=== PATIENT | female | born 1950 | race Caucasian/White ===

== ENCOUNTER 2017-11-23 10:24 | Observation (INO) | payer MEDICARE, OTHER, BC ==
[2017-11-23 11:40] LABS: ADD MAN DIFF? NO
[2017-11-23 11:43] LABS: BASOPHILS % 0.6 % (0.0-2.0); EOSINOPHILS # 0.1 10^3/ul (0.0-0.5); EOSINOPHILS % 1.5 % (0.0-7.0); HEMOGLOBIN 11.9 g/dl (12.0-16.0); LYMPHOCYTES # 1.3 10^3/ul (0.8-2.9); LYMPHOCYTES % 28.4 % (15.0-51.0); MEAN CORPUSCULAR HGB CONC 33.1 g/dl (32.0-37.0); MEAN CORPUSCULAR VOLUME 90.7 fl (82.0-101.0); MEAN PLATELET VOLUME 9.3 fl (7.4-10.4); MONOCYTE # 0.3 10^3/ul (0.3-0.9); MONOCYTES % 7.2 % (0.0-11.0); NEUTROPHIL # 2.9 10^3/ul (1.6-7.5); NEUTROPHILS % 61.9 % (39.0-77.0); PLATELET COUNT 206 10^3/UL (140-415); RED BLOOD COUNT 3.97 10^6/ul (4.20-5.40); RED CELL DISTRIBUTION WIDTH 13.2 % (11.5-14.5)
[2017-11-23 11:43] LABS: WHITE BLOOD COUNT 4.7 10^3/ul (4.8-10.8)
[2017-11-23 12:30] LABS: ANION GAP 8 (8-16); BLOOD UREA NITROGEN 18 mg/dl (7-20); CARBON DIOXIDE 31 mmol/L (21-31); CHLORIDE 105 mmol/L (97-110); CREATININE 0.54 mg/dl (0.44-1.00); GLUCOSE 100 mg/dl (70-220); POTASSIUM 3.9 mmol/L (3.5-5.1); SODIUM 140 mmol/L (135-144)
[2017-11-23 12:36] LABS: B-TYPE NATRIURETIC PEPTIDE 297 PG/ML (0-125); TROPONIN-I < 0.012 ng/ml (0.000-0.120)
[2017-11-23 12:46] LABS: INR 0.91; PARTIAL THROMBOPLASTIN TIME 26.6 Sec (23.0-35.0); PROTIME 12.4 Sec (11.9-14.9)
[2017-11-23] MEDS ORDERED: ONDANSETRON 4 MG INJ IV (13:00)
[2017-11-23] MEDS ORDERED: ACETAMINOPHEN 325 MG TAB PO (13:00)
[2017-11-23] MEDS ORDERED: MECLIZINE 25 MG TAB PO (16:00)
[2017-11-23] MEDS ORDERED: IBUPROFEN 600 MG TAB PO (16:00)
[2017-11-23] MEDS ORDERED: NACL 0.9% 3 ML SYG IV (16:00)
[2017-11-23] MEDS ORDERED: ONDANSETRON 4 MG TAB PO (16:00)
[2017-11-23] MEDS: ATORVASTATIN 10 MG TAB PO (20:05)
[2017-11-23] MEDS ORDERED: IOHEXOL 300MG/ML 150 ML BTL (21:48)
[2017-11-23] MEDS ORDERED: SOD CHLORIDE 0.9% 100 ML (21:48)
[2017-11-24] MEDS: PANTOPRAZOLE (EC) 40 MG TAB PO (06:32)
[2017-11-24] MEDS: CHOLECALCIFEROL 1,000 UNIT TAB PO (08:57)
[2017-11-24 09:07] LABS: HEMOGLOBIN A1C 5.8 % (0-5.9)
[2017-11-24] MEDS: LIDOCAINE 1% (MPF) 5 ML VIAL (16:11)
[2017-11-24 16:46] LABS: FLUID GLUCOSE 113 mg/dl; FLUID LD 324 U/L; FLUID TYPE PLEURAL FLUID
[2017-11-24 16:47] LABS: FLUID TYPE PLEURAL FLUID
[2017-11-24 17:01] LABS: FLD TYPE PLEURAL
[2017-11-24 17:01] LABS: FLD CLARITY HAZY; FLD COLOR YELLOW; FLD PMN% 2.4 %; FLD RBC 2000 /uL; FLD WBC 2155 /cmm
[2017-11-24 17:04] LABS: FLD MN% 97.6 %
[2017-11-24] MEDS: ACETAMINOPHEN 325 MG TAB PO (19:48)
[2017-11-24] MEDS: ATORVASTATIN 10 MG TAB PO (20:52)
[2017-11-25 05:50] LABS: ADD MAN DIFF? NO
[2017-11-25] MEDS: ACETAMINOPHEN 325 MG TAB PO (05:51)
[2017-11-25] MEDS: PANTOPRAZOLE (EC) 40 MG TAB PO (05:51)
[2017-11-25 05:55] LABS: BASOPHILS % 0.2 % (0.0-2.0); EOSINOPHILS # 0.1 10^3/ul (0.0-0.5); EOSINOPHILS % 1.3 % (0.0-7.0); HEMATOCRIT 35.2 % (37.0-47.0); HEMOGLOBIN 11.5 g/dl (12.0-16.0); LYMPHOCYTES # 1.2 10^3/ul (0.8-2.9); LYMPHOCYTES % 25.7 % (15.0-51.0); MEAN CORPUSCULAR HEMOGLOBIN 29.5 pg (29.0-33.0); MEAN CORPUSCULAR HGB CONC 32.7 g/dl (32.0-37.0); MEAN CORPUSCULAR VOLUME 90.3 fl (82.0-101.0); MEAN PLATELET VOLUME 8.9 fl (7.4-10.4); MONOCYTE # 0.4 10^3/ul (0.3-0.9); NEUTROPHILS % 64.4 % (39.0-77.0); PLATELET COUNT 183 10^3/UL (140-415); RED CELL DISTRIBUTION WIDTH 13.1 % (11.5-14.5)
[2017-11-25 05:55] LABS: WHITE BLOOD COUNT 4.6 10^3/ul (4.8-10.8)
[2017-11-25 06:15] LABS: ANION GAP 10 (8-16); BLOOD UREA NITROGEN 20 mg/dl (7-20); CALCIUM 8.5 mg/dl (8.4-10.2); CARBON DIOXIDE 29 mmol/L (21-31); CHLORIDE 105 mmol/L (97-110); GLUCOSE 113 mg/dl (70-220); POTASSIUM 3.9 mmol/L (3.5-5.1); SODIUM 140 mmol/L (135-144)
[2017-11-25 09:55] LABS: ALANINE AMINOTRANSFERASE 21 IU/L (13-69); ALBUMIN 3.2 g/dl (3.3-4.9); ALKALINE PHOSPHATASE 45 IU/L (42-121); ASPARTATE AMINO TRANSFERASE 18 IU/L (15-46); BILIRUBIN,INDIRECT 0.1 mg/dl (0-1.1); BILIRUBIN,TOTAL 0.1 mg/dl (0.2-1.3)
[2017-11-25 13:22] LABS: FLUID TOTAL PROTEIN 4.6 g/dl
[2017-11-25] MEDS: DOCUSATE SODIUM 100 MG CAP PO (20:56)
[2017-11-25] MEDS: ATORVASTATIN 10 MG TAB PO (20:56)
[2017-11-26] MEDS: PANTOPRAZOLE (EC) 40 MG TAB PO (05:29)
[2017-11-26] MEDS: ATENOLOL 50 MG TAB PO (12:25)
[2017-11-26] MEDS: ATORVASTATIN 10 MG TAB PO (20:29)
[2017-11-27 05:16] LABS: ADD MAN DIFF? NO
[2017-11-27 05:20] LABS: WHITE BLOOD COUNT 4.7 10^3/ul (4.8-10.8)
[2017-11-27 05:20] LABS: BASOPHILS % 0.4 % (0.0-2.0); EOSINOPHILS # 0.1 10^3/ul (0.0-0.5); EOSINOPHILS % 1.9 % (0.0-7.0); HEMATOCRIT 33.8 % (37.0-47.0); HEMOGLOBIN 11.1 g/dl (12.0-16.0); LYMPHOCYTES # 1.2 10^3/ul (0.8-2.9); LYMPHOCYTES % 26.7 % (15.0-51.0); MEAN CORPUSCULAR HEMOGLOBIN 29.6 pg (29.0-33.0); MEAN CORPUSCULAR HGB CONC 32.8 g/dl (32.0-37.0); MEAN CORPUSCULAR VOLUME 90.1 fl (82.0-101.0); MEAN PLATELET VOLUME 9.5 fl (7.4-10.4); MONOCYTE # 0.4 10^3/ul (0.3-0.9); MONOCYTES % 8.2 % (0.0-11.0); NEUTROPHIL # 2.9 10^3/ul (1.6-7.5); NEUTROPHILS % 62.6 % (39.0-77.0); PLATELET COUNT 170 10^3/UL (140-415); RED BLOOD COUNT 3.75 10^6/ul (4.20-5.40); RED CELL DISTRIBUTION WIDTH 13.1 % (11.5-14.5)
[2017-11-27] MEDS: PANTOPRAZOLE (EC) 40 MG TAB PO (05:26)
[2017-11-27 05:35] LABS: ANION GAP 6 (8-16); BLOOD UREA NITROGEN 16 mg/dl (7-20); CALCIUM 8.4 mg/dl (8.4-10.2); CARBON DIOXIDE 29 mmol/L (21-31); CHLORIDE 109 mmol/L (97-110); GLUCOSE 109 mg/dl (70-220); POTASSIUM 4.1 mmol/L (3.5-5.1); SODIUM 140 mmol/L (135-144)
[2017-11-27] MEDS: ATENOLOL 50 MG TAB PO (08:21)
[2017-12-01] MEDS ORDERED: CHOLECALCIFEROL 1,000 UNIT TAB PO (09:00)
== END 2017-11-27 11:15 | disposition home or self-care (01) ==
LOC: E/R 10:24 → PP2 12:35
DX: J90 Pleural effusion, not elsewhere classified (principal); I10 Essential (primary) hypertension; E78.5 Hyperlipidemia, unspecified; Z87.891 Personal history of nicotine dependence
CPT/HCPCS: 32555; 36415; 71045; 71250; 71260; 76942; 80048; 80076; 82945; 83036; 83615; 83880; 83986; 84157; 84484; 85025; 85610; 85730; 87070; 87102; 87116; 88104; 88305; 89051; 93005; 93306; 93970; 99217; 99285-25; G0378

== ENCOUNTER → 2017-12-15 | Outpatient (CLI) | payer MEDICARE, OTHER | END | disposition home or self-care (01) | LOC: RAD 10:05 | DX: J90 Pleural effusion, not elsewhere classified (principal) | CPT/HCPCS: 71046 ==

== ENCOUNTER 2018-01-12 07:56 | Day surgery (SDC) | payer MEDICARE, OTHER ==
[2018-01-12] MEDS: LIDOCAINE 1% (MPF) 5 ML VIAL (10:03)
[2018-01-12 13:22] LABS: FLUID TYPE THORACENTESIS FLUID
[2018-01-12 13:23] LABS: FLUID LD 298 U/L; FLUID TOTAL PROTEIN 4.9 g/dl
== END 2018-01-12 16:43 | disposition home or self-care (01) ==
LOC: SDS 07:56
DX: J90 Pleural effusion, not elsewhere classified (principal)
CPT/HCPCS: 32555; 71045; 76942; 83615; 84157; 87070; 87102; 87116; 88104; 88305